=== PATIENT | female | born 2000 | race Caucasian/White ===

== ENCOUNTER → 2021-05-21 | Outpatient (CLI) | payer OTHER ==
--- NOTE | 2021-05-21 16:17 | RAD ---
EXAM: AP, lateral and lumbosacral spot views with bilateral oblique views of the lumbar spine DATE: 05/21/2021 11:42 AM INDICATION: Reason: SEVERE BACK PAIN ONSET THIS MORNING / Spl. Instructions: / History: COMPARISON: No Prior FINDINGS: Vertebral body heights are preserved. Disc heights are preserved. No spondylolisthesis. Straightening of the normal lumbar lordosis. No acute fracture. Moderate colonic stool content in the cecum/right colon. IMPRESSION: 1. Negative acute fracture or subluxation. Electronically signed by: Javier Valdez MD (05/21/2021 4:15 PM) [id number]
== END ==
LOC: RAD 11:35
DX: M54.16 Radiculopathy, lumbar region (principal); M40.46 Postural lordosis, lumbar region
CPT/HCPCS: 72110